=== PATIENT | female | born 1990 | race Caucasian/White ===

== ENCOUNTER 2024-12-23 05:14 | Emergency (ER) | payer OTHER ==
[~2024-12-23] VITALS: Ht 165.1 cm; Wt 62.1 kg
[2024-12-23] MEDS ORDERED: SERTRALINE HYD100 MG PO (05:28)
[2024-12-23] MEDS ORDERED: Amoxicillin/Clavulanate Pota 875 MG TAB PO ONE (05:30)
[2024-12-23] MEDS ORDERED: Ketorolac Tromethamine 60 MG/2 ML VIAL IM ONE (05:30)
[2024-12-23] MEDS ORDERED: AMOX-CLAV 875-1 EACH PO (05:32)
== END 2024-12-23 06:12 | disposition home or self-care (01) ==
LOC: ED 05:14
DX: H66.92 Otitis media, unspecified, left ear (principal)